=== PATIENT | female | born 1955 | race African-American/Black ===

== ENCOUNTER → 2017-11-25 | Outpatient (CLI) | payer BC ==
--- NOTE | 2017-11-27 09:46 | RADIOLOGY REPORT (SQ) ---
EXAM DESCRIPTION: CT CHEST WITHOUT COMPLETED DATE/TIME: 11/25/2017 1:16 pm REASON FOR STUDY: ABN CXR (R93.8) R93.8 ABNORMAL FINDINGS ON DIAGNOSTIC IMAGING OF BODY STRUCT COMPARISON: None available. Reported "Abnormal CXR" . TECHNIQUE: CT scan performed of the chest without intravenous contrast. Images reviewed with lung, soft tissue and bone windows. Reconstructed coronal and sagittal MPR images reviewed. All images st ored on PACS. All CT scanners at this facility use dose modulation, iterative reconstruction, and/or weight based d osing when appropriate to reduce radiation dose to as low as reasonably achievable (ALARA). [facility]: Dose Right [facility]: CareDose [facility]: Dose Right [facility]: Teradose 4D [facility]: Smart [employer] RADIATION DOSE: CT Rad equipment meets quality standard of care and radiation dose reduction techniq ues were employed. CTDIvol: 13.1 mGy. DLP: 476 mGy-cm. mGy. LIMITATIONS: Limited information on reported outside abnormal imaging. FINDINGS: LUNGS AND PLEURA: Mild bullous changes are appreciated, most notable in the upper lobes. No consolidating pneumonia. No nodules or masses or pleural disease evident. HILAR AND MEDIASTINAL STRUCTURES: No identified masses or abnormal nodes. No obvious aneurysm. HEART AND VASCULAR STRUCTURES: No aneurysm. No pericardial effusion. UPPER ABDOMEN: Small hiatal hernia. No upper abdominal mass detected. THYROID AND OTHER SOFT TISSUES: No masses. No adenopathy. BONES: No significant finding. HARDWARE: None in the chest. OTHER: No other significant findings. IMPRESSION: 1. COPD. 2. No acute or suspicious pulmonary changes appreciated. TECHNICAL DOCUMENTATION: JOB ID: [id number] Quality ID # [id number]: Final reports with documentation of one or more dose reduction techniques (e.g., Au tomated exposure control, adjustment of the mA and/or kV according to patient size, use of iterative reconstruction technique) 2010 [employer]- All Rights Reserved
== END ==
LOC: RAD 12:33
PROVIDERS: ATTEND Internal Medicine Pulmonary Disease
DX: R93.8 Abnormal findings on diagnostic imaging of other specified body structures (principal); J44.9 Chronic obstructive pulmonary disease, unspecified
CPT/HCPCS: 71250